=== PATIENT | female | born 1975 | race Hispanic/Latino ===

== ENCOUNTER 2017-11-29 07:43 | Day surgery (SDC) | payer OTHER ==
[2017-11-29 08:06] LABS: Specific Gravity 1.025 (1.005-1.030)
[2017-11-29] MEDS ORDERED: Ringers Lactate 1,000 ML IV ONE (08:13)
[2017-11-29] MEDS ORDERED: FENTANYL CITR 100 MCG/2 ML ONE (08:59)
[2017-11-29] MEDS ORDERED: MIDAZOLAM HCL 2 MG/2 ML INJ ONE (08:59)
[2017-11-29] MEDS ORDERED: KETOROLAC 30 MG/ML INJ ONE (08:59)
[2017-11-29] MEDS ORDERED: LIDOCAINE 1% MPF 5 ML VIAL ONE (08:59)
[2017-11-29] MEDS ORDERED: PROPOFOL 200 MG/20 ML VIAL IV ONE (08:59)
[2017-11-29] MEDS: CEFAZOLIN/SWI 1gm 1 GM/10 ML SYR ONE ×2 (09:00→09:20)
[2017-11-29] MEDS ORDERED: ONDANSETRON HCL 40 MG/20 ML VIAL ONE (09:25)
[2017-11-29] MEDS: MEPERIDINE HCL 25 MG/0.5 ML ONE ×2 (10:29→10:34)
[2017-11-29] MEDS ORDERED: ONDANSETRON 4 MG/2 ML VIAL ONE ×2 (11:32→12:24)
[2017-11-29] MEDS ORDERED: HYDROCODONE/APAP 5/325 MG TAB ONE (11:43)
[2017-11-29] MEDS ORDERED: PROMETHAZINE 25 MG/ML VIAL ONE (12:39)
[2017-11-29] MEDS ORDERED: METOCLOPRAMIDE 10 MG/2mL INJ ONE (12:39)
--- NOTE | 2017-11-29 21:35 | OP ---
Date of Procedure: 11/29/2017 Surgeon: Lilian Robin MD Preoperative Diagnosis: Abnormal uterine bleeding-L (menorrhagia). Postoperative Diagnoses: Abnormal uterine bleeding-L (menorrhagia), type 1 intracavitary leiomyoma. Procedures: Hysteroscopy, endometrial ablation with HTA. Anesthesia: General with LMA. Specimens: None. Complications: None. Drains: None. Condition: The patient is stable. Findings: Posterior wall of the uterus on the left side had a 1 cm type 1 intracavitary leiomyoma, however, it was very small, and so the fibroid was left in place and an ablation was done. There was an excellent ablation effect after the HTA was done, pictures were taken. Description Of Procedure: After informed consent was verified, the patient was taken back to the OR. Ancef 1 g was given. She was placed in dorsal lithotomy position. Pelvic exam performed. Uterus enlarged about 10 to 12 week size. No adnexal masses, mobile. Speculum was placed to expose the cervix. Prep x3 with Betadine was done. Anterior lip grasped with 2 Allis clamps. Using the primed HTA sheath, and a 30-degree lens, normal saline for distention medium, hysteroscopy was performed directly through the cervical canal into the uterine cavity with predilation of the cervix and cavity integrity test was done, and this passed with only 7 to 8 mL of fluid shift. After the tip of the scope was placed in the center of the cavity, posterior fornix packed with 2 Ray-Tecs with a Olguin speculum in place. Ablation cycle was started. The complete heating 10-minute ablation and 1-1/2 minute cooling cycle were done in an uninterrupted fashion. The cavity was irrigated and well visualized. There was an excellent ablation effect. The patient tolerated the procedure well. The Ray-Tecs were removed. All the instruments were removed. Instrument, needle, and sponge counts were done and were correct at the end of the case. The patient tolerated the procedure well. She was recovered from anesthesia in the OR and taken to PACU in stable condition. She will follow up with me in 3 weeks. BELLA/OLIMPIA Voice ID: [id number] Report ID: [id number] JUSTINO
== END 2017-11-29 12:55 | disposition home or self-care (01) ==
LOC: OR 07:43
PROVIDERS: ATTEND Obstetrics & Gynecology
PROC: 0U5B8ZZ Destruction of Endometrium, Via Natural or Artificial Opening Endoscopic (ICD-10-PCS; principal; 2017-11-29 09:00)
DX: N93.9 Abnormal uterine and vaginal bleeding, unspecified (principal); N92.0 Excessive and frequent menstruation with regular cycle; N94.5 Secondary dysmenorrhea; D50.9 Iron deficiency anemia, unspecified; D25.9 Leiomyoma of uterus, unspecified
CPT/HCPCS: 81025; J0690; J2175; J2250; J2405; J2550; J2765; J3010

== ENCOUNTER 2018-06-22 07:01 | Day surgery (SDC) | payer OTHER ==
[2018-06-19 12:23] LABS: Urine Appearance CLEAR; Urine Bilirubin NEGATIVE (NEG); Urine Blood 3+ (NEG); Urine Color YELLOW; Urine Glucose NEGATIVE (NEG); Urine Protein NEGATIVE (NEG); Urine Urobilinogen 0.2 mg/dL (0.2-1.0); Urine pH 7.5 (5.0-7.0)
[2018-06-19 12:24] LABS: Urine Microscopic Reflex ORDER UMIC
[2018-06-19 12:41] LABS: Absolute Lymphocytes (CBC) 2.1 K/uL (0.7-4.9); Absolute Monocytes 0.5 K/uL (0.1-1.3); Absolute Neutrophil 2.9 K/uL (1.8-8.0); Basophils % 2.9 % (0-1.3); Eosinophils % 9.4 % (0-4.4); Hematocrit 34.9 % (36.0-45.0); Lymphocytes % 33.9 % (15.3-44.8); MPV 9.6 fL (7.6-11.3); RBC Red Blood Cell Count 4.19 M/uL (3.86-4.86)
[2018-06-19 12:42] LABS: Urine Bacteria <20 /HPF (<20); Urine Culture Reflex Order NOT NEEDED; Urine RBC LOADED /HPF (NONE SEEN)
[2018-06-22] MEDS ORDERED: PROPOFOL 200 MG/20 ML VIAL IV ONE (07:16)
[2018-06-22] MEDS ORDERED: GLYCOPYRROLATE 0.2 MG/ML SYR ONE (07:17)
[2018-06-22] MEDS ORDERED: ROCURONIUM 50 MG/5 ML VIAL IV ONE (07:17)
[2018-06-22] MEDS ORDERED: FENTANYL CITR 250 MCG/5 ML ONE (07:18)
[2018-06-22] MEDS ORDERED: DEXAMETHASONE 10 MG/ML VIAL ONE (07:18)
[2018-06-22] MEDS ORDERED: MIDAZOLAM HCL 2 MG/2 ML INJ ONE (07:19)
[2018-06-22] MEDS ORDERED: LIDOCAINE 2% MPF 5 ML VIAL ONE (07:20)
[2018-06-22] MEDS ORDERED: SCOPOLAMINE HYDROBROMIDE PATCH TD ONE (07:38)
[2018-06-22] MEDS ORDERED: Ringers Lactate 1,000 ML IV ONE (07:38)
[2018-06-22] MEDS ORDERED: CEFAZOLIN 2GM (PREMIX IV) 2 GM/50 ML BAG ONE (07:38)
[2018-06-22] MEDS ORDERED: EPHEDRINE SULF 50 MG/ML VIAL ONE (09:02)
[2018-06-22] MEDS ORDERED: NA CHLORIDE 0.9% 1,000 ML ONE (09:03)
[2018-06-22] MEDS ORDERED: KETOROLAC 30 MG/ML INJ ONE (10:27)
[2018-06-22] MEDS ORDERED: NEOSTIGMINE 1 MG/ML -10 ML VIAL ONE (10:27)
[2018-06-22] MEDS ORDERED: ONDANSETRON 4 MG/2 ML VIAL ONE (10:27)
[2018-06-22] MEDS: Ringers Lactate 1,000 ML IV ONE ×2 (10:57→11:41)
[2018-06-22] MEDS ORDERED: IBUPROFEN 200 MG TAB PO PRN (11:55)
[2018-06-22] MEDS ORDERED: HYDROCODONE/APAP 5/325 MG TAB PO PRN (11:55)
[2018-06-22] MEDS ORDERED: MEPERIDINE HCL 25 MG/0.5 ML IM PRN (11:55)
[2018-06-22] MEDS ORDERED: PROMETHAZINE 25 MG/ML VIAL IV PRN (11:55)
[2018-06-22] MEDS ORDERED: PROMETHAZINE 25 MG/ML VIAL ONE (12:48)
--- NOTE | 2018-06-24 04:59 | OP ---
Date of Procedure: 06/22/2018 Surgeon: Lilian Robin MD Instrument Worker: Elin Hurtado. Preoperative Diagnosis: Abnormal uterine bleeding-L and anemia. Postoperative Diagnoses: Abnormal uterine bleeding-L and anemia and endometriosis of the posterior c ul-de-sac, bilateral uterosacral ligaments. Procedures Performed: 1.Total laparoscopic hysterectomy, bilateral salpingectomy. 2.Endometriosis excision, extensive. 3.Left ureterolysis and cystoscopy. Estimated Blood Loss: Minimal less than 50. Specimens: Uterus, bilateral tubes. Complications: Suspected extreme superficial laceration of the bladder above the level of the trigon e just at the level of the vaginal cuff and this was sutured. There was no cystotomy. There was no evidence of suture in the bladder. This was just done on a precautionary note. Drains: None. Findings: The uterus was significantly enlarged with multiple fibroids, weighed 322 g on removal. O varies appeared to be completely normal. However there was extensive endometriosis, nodular, infiltr ative at the distal uterosacral ligament on the left and the right, and posterior cul-de-sac and the endometriosis on the left was at the level of the ureteric tunnel where the ureter had to be dissecte d laterally before I was able to remove the endometriosis and perform the hysterectomy safely separat ing the uterine artery from the ureter. Indications: The patient is a 42-year-old who had heavy bleeding. Endometrial sampling without any atypia or malignancy. Since she had multiple fibroids and anemia, she did not want to do any medical management. She wanted an endometrial ablation. We discussed about Mirena and Dep. She decided to proceed with an ablation and once this was done, she did not have optimal relief from this. She had recurrent bleeding. She also complained of secondary dysmenorrhea and this now on retrospection is from her endometriosis. After failing the ablation, the patient wanted to have a hysterectomy because her bleeding was intole rable and her cramps had gotten much worse. So at that time, we discussed about removing and the rachel n was mostly in left lower quadrant and she had deep dyspareunia as well as left lower quadrant pelvi c pain even at the time that there was no bleeding and at the time of the period this was much worse. So, after all the discussion was done, benefits and risks were explained, alternatives of depot med roxyprogesterone or Mirena were discussed, which was really not a great option after the ablation and failure with it especially, we proceeded with consenting her for a total laparoscopic hysterectomy, bilateral salpingectomy. Description Of Procedure: After informed consent was verified, she was taken back to OR and 2 g of A ncef were given. SCDs were placed, thigh-high BAIRON hoses were placed after time-out was done. Arms w ere tucked by the side. Positioning was checked. Then pelvic exam was performed when the patient wa s in [facility]. Uterus was about 10 to 12 week size but fibroids all seemed stacked vertically. There was excellent space in bilateral adnexa and suspicion of nodularity at the uterosacral ligame nt. Abdomen, vulva, vagina, and perineum were prepped and draped in a sterile fashion. Terry was placed to drain the bladder and VCare introduced without any problems to about 12 [address] in place. A large cup was used. The Terry was attached to a drainage bag, emptied 300 through cysto tubing and t his area was draped. A 1 cm infraumbilical incision was made with a scalpel using the open laparoscopy technique. Fascia was incised and tagged. Dissection was performed to reach the peritoneum, was picked up and incised sharply with Metzenbaum scissors. Peritoneal cavity was entered, S retractors placed. Daisy introd uced. Site of entry was checked after the camera was placed and once the Daisy was secured in place . Upper abdominal surface was completely unremarkable, liver and gallbladder, diaphragmatic surfaces, o mentum. The patient was placed in Trendelenburg position. A 5-mm left lower quadrant and 10-mm supr apubic ports were placed under direct vision. After visualizing the pelvic cavity, the sigmoid colon was visualized. It was in my way for visualization of the lateral wall so 2 epiploica that were natasha ropriate to be retracted were picked up and 3-0 Monocryl was passed through this with SH needle and t he needle was cut out and the ends were brought out with the Dionte-Nirmala needle and placed in the left upper quadrant. This was done for retraction. Once this was set in place and pelvic cavity wa s surveyed, endometriosis was identified in the distal left uterosacral ligament which was nodular an d pulling the ureter at the level of the ureteric tunnel medially. In a similar fashion, there was e ndometriosis within the posterior cul-de-sac as well as the distal right uterosacral ligament and sli ghtly lateral to the uterosacral ligament towards the right ureter. However, it was not infiltrating , the ureter was not pulled medially on the right side. The bladder appeared to be somewhat more closer to the cup and the fornix was really high around the cervix, very minimal fat in the prevesical space. A 5 mm LigaSure was used to take down the left round ligament, mesosalpinx tube, utero-ovarian ligame nt. Broad ligament anteriorly was opened up to raise the bladder flap all the way to the opposite si de. Then posteriorly once the broad ligament was opened up, I had to dissect laterally more than wha t I would to excise the endometriosis. Thorough dissection was performed to identify the ureter at t he medial leaf of the broad ligament. I could visualize this from the medial aspect via transperiton eally. However when the broad ligament was opened up, it was difficult to identify the ureter, so th e dissection of the peritoneum was carried cephalad, another 5 cm incision was made so as to identify the proximal part of the pelvic ureter. Once it was identified, with lateral dissection the vessels were dissected laterally. The medial leaf of the broad ligament and the ureter were dissected media lly. Once the ureter was identified in the medial leaf and from the peritoneum then this d issection was carried with a push-spread technique gently to separate the ureter from the posterior b road ligament and dissection was carried all the way to the level of the uterine artery crossing. Th e internal iliac vessels and the origin of the uterine artery were on the lateral aspect. The ureter was dissected medially and pushed laterally. Once this was done, the endometriosis was . There was infiltration in the area between the ureteric tunnel and the uterine artery. This was diss ected carefully and removed in its entirety with the help of the curved tip 5-mm LigaSure. Once this was done, all this tissue was pulled medially and included with the specimen. Posteriorly, the broa d ligament was dissected. The implant in the posterior cul-de-sac was left in place and I went trans versely at the level of the suture colpotomy with the LigaSure and this was left alone. Then I went to the opposite side, did the similar dissection. After anterior bladder flap was connected posterio rly, came back down and was able to open up the posterior broad ligament to the level of the right di stal uterosacral ligament. Here, dissection was carried by holding the endometriosis implant with a Kim, then dissection was carried to separate this from the underlying uterine artery. A complete dissection was performed of the nodule and it was and retracted medially along with the sp ecimen. Then, the peritoneum was incised at the distal uterosacral coming around, curving down and m edially to connect from the opposite side. Once this was done, the entire endometriotic implant was medial. I could see the vessels superiorly and medially and the ureter at the ureteric tunnel did no t have to be dissected and was clearly lateral. The anterior bladder flap, here I realized that the dissection was carried little further inferior th an what I would like and I could see the bladder musculature clearly with very superficial laceration from my dissection with the LigaSure since this was a bipolar device and I went through the serosa o f the bladder into superficial bladder muscle. I decided to close this with a continuous running ove rlapping imbricating 3-0 Vicryl suture and this was done after the colpotomy was closed in 1 single l deion. Then, another simple stitch was placed to close the gap in one area of the incision. This was about a 3 cm area above the cuff. The bladder flap was carefully created. Bladder dissected after entering the vesicovaginal space pus karely it down inferiorly. Then, went ahead and took down the vessels on the right side first by creat ing a medial window with the monopolar and taking it with the basket tip bipolar and then the LigaSur e. Both ascending and descending branches from the uterine ring were taken down. The cardinal ligam ent was also taken down. On the opposite side, similar dissection was performed without any problems . Then circumferential colpotomy was done with a monopolar hook blade. The specimen removed and det ached through the vagina and gradually had to be manipulated out with each fibroid using a towel clip and rotating so that the uterus came out without any problems. There was minor vertical laceration at the level of the vaginal apex towards the right side. This was bleeding slightly and this was cau terized with the help of the bipolar medium tip. There was 1 area of the right distal uterosacral ligament which was bleeding and this had to be caute rized 2 or 3 times to seal it and obtain excellent hemostasis. 0 Vicryl sutures were placed after th orough irrigation and suction were performed and both tubes were removed with the help of the LigaSur e and they were retrieved. 0 Vicryl was used to close both angles with a simple stitch tied laterally , then 3 [id number] in the middle. Once this was done and the bladder superficial laceration w as closed and the serosa was imbricated, the peritoneum of the bladder was brought down and this was easily mobilized. Plan was to remove the posterior cul-de-sac nodule. It was central and the nodule was held with a [employer] grasper. Dissection was performed to separate this from the rectum and once this was clearly do ne, the entire nodule was removed. The patient has severe dyspareunia so I took time to remove the e ntire nodule here with the bipolar. Once the entire dissection was done and normal fat was seen, the nodule was removed through the suprapubic port and handed off for permanent pathology. Thorough irr igation and suction were performed. I tried to close the anterior peritoneum with the posterior near the sigmoid. However, this was retracted in the sigmoid superiorly and putting excessive tension on this so I did not like this stitch. So this was cut out and then repeat stitch was done bringing th e peritoneum over the vaginal cuff and suturing into the inferior part retroperitonealizing the vagin al cuff as well as walling of the superficial bladder closure from the general peritoneal cavity. 3-0 Vicryl in a continuous running fashion was done and the suture was tied with intracorporeal knots at the end. Thorough irrigation and suction were performed. There was excellent peristalsis of both ureters from the pelvic brim to the ureteric tunnel. No evidence of electrical, mechanical, or thermal injury to them. The bowel was released from the Monocryl. All the ports were removed. Gas was desufflated. Fascia at the umbilicus closed with 0 Vicryl in a [id number] fashion tying both tail ends. The n a simple 0 Vicryl suture in the suprapubic fascial incision and all the incisions closed with the h elp of interrupted 4-0 Monocryls. A cystoscopy was performed. The Terry was removed. A 17-Guyanese s andrew, 30-degree lens, normal saline were used. Both ureteric orifices were well visualized and norm al streams of urine. The bladder appeared to be completely unremarkable. No evidence of any foreign body or trauma to the bladder. Both ureteric orifices were promptly visualized with strong jets of urine. The bladder was drained. Vaginal cuff was examined with the scope in the vagina. There was excellent closure without any openings. All this was after the camera was removed. Instrument, need le, and sponge counts were done and were correct at the end of the case. The patient tolerated the p rocedure well. She was extubated in the OR and taken to PACU in stable condition. She will follow u p with me in 1 week. The decision was to remove the Terry since the laceration was very superficial and this was definitely confirmed to be above the level of the trigone once the cystoscopy was perfor med. So, regular bladder emptying without need for any drainage. The patient discharged home. BELLA/OLIMPIA Voice ID: [id number] Report ID: [id number]
== END 2018-06-22 15:15 | disposition home or self-care (01) ==
LOC: OR 07:01
PROVIDERS: ATTEND Obstetrics & Gynecology
PROC: 0UT7FZZ Resection of Bilateral Fallopian Tubes, Via Natural or Artificial Opening With Percutaneous Endoscopic Assistance (ICD-10-PCS; 2018-06-22)
PROC: 0UB44ZZ Excision of Uterine Supporting Structure, Percutaneous Endoscopic Approach (ICD-10-PCS; 2018-06-22)
PROC: 0UT9FZZ Resection of Uterus, Via Natural or Artificial Opening With Percutaneous Endoscopic Assistance (ICD-10-PCS; principal; 2018-06-22 08:30)
DX: N92.0 Excessive and frequent menstruation with regular cycle (principal); N94.5 Secondary dysmenorrhea; D25.1 Intramural leiomyoma of uterus; N88.8 Other specified noninflammatory disorders of cervix uteri; N72 Inflammatory disease of cervix uteri; N83.8 Other noninflammatory disorders of ovary, fallopian tube and broad ligament; N80.4 Endometriosis of rectovaginal septum and vagina; N80.3 Endometriosis of pelvic peritoneum; N99.71 Accidental puncture and laceration of a genitourinary system organ or structure during a genitourinary system procedure; D50.0 Iron deficiency anemia secondary to blood loss (chronic); E03.9 Hypothyroidism, unspecified
CPT/HCPCS: 36415; 81003; 81015; 81025; 85025; 86850; 86900; 86901; 88305; 88307; J0690; J1100; J2250; J2405; J2550; J2704; J2710; J3010; J7030